=== PATIENT | female | born 1985 | race Caucasian/White ===

== ENCOUNTER 2019-06-06 19:40 | Emergency (ER) | payer SELFPAY ==
--- NOTE | 2019-06-06 20:39 | RAD ---
RADIOGRAPH CHEST 2 VIEWS: DATE: 06/06/2019 HISTORY: 33-year-old female with chest pain FINDINGS: The lungs are clear. The cardiomediastinal silhouette and hilar shadows appear normal. There is no pl eural effusion or pneumothorax. No osseous abnormality is identified. IMPRESSION: Normal
== END 2019-06-06 21:05 | disposition home or self-care (01) ==
LOC: NAV ERS 19:40
DX: R07.9 Chest pain, unspecified (principal); K21.9 Gastro-esophageal reflux disease without esophagitis
CPT/HCPCS: 71046; 93005; 94760

== ENCOUNTER 2019-06-07 20:07 | Emergency (ER) | payer SELFPAY ==
[2019-06-07] MEDS ORDERED: Mag-Al Plus 1200 MG/1200 MG/120 MG/30 ML UDCUP ONE (20:33)
[2019-06-07] MEDS ORDERED: Lidocaine Viscous Sol 2% 15 ml UD Cup ONE (20:33)
== END 2019-06-07 20:43 | disposition home or self-care (01) ==
LOC: NAV ERS 20:07
DX: K21.9 Gastro-esophageal reflux disease without esophagitis (principal); R07.9 Chest pain, unspecified
CPT/HCPCS: 93005